=== PATIENT | male | born 1950 | race Caucasian/White ===

== ENCOUNTER → 2017-06-23 | Outpatient (CLI) | payer MEDICARE ==
[~2017-06-23] MED LIST: AMOCLA875; CALCIUM PO; CYAN1000I IM; ESOM20 PO; HYDMOR2 PO; HYDR1TAB94; K-Dur10 MEQ PO; LORA1 PO; Nexium40 MG PO; POTCHL10ER PO; TRAM50 PO; Ultram50 MG PO
== END | disposition home or self-care (01) ==
LOC: LAB SHORT 14:30
DX: G89.4 Chronic pain syndrome (principal); Z79.899 Other long term (current) drug therapy

== ENCOUNTER 2018-12-12 17:53 | Emergency (ER) | payer MEDICARE ==
[~2018-12-12] VITALS: Ht 182.9 cm; Wt 131.5 kg
== END 2018-12-12 19:18 | disposition left against medical advice (07) ==
LOC: ER 17:53
DX: Z53.21 Procedure and treatment not carried out due to patient leaving prior to being seen by health care provider (principal)

== ENCOUNTER 2020-05-09 09:19 | Emergency (ER) | payer MEDICARE ==
[~2020-05-09] VITALS: Ht 182.9 cm; Wt 130.6 kg
[~2020-05-09 09:19] MED LIST changes: +CYCL10 PO
[2020-05-09] MEDS ORDERED: OXYC10ER PO (09:29)
[2020-05-09] MEDS ORDERED: Norco 10-325 T1 EACH PO (12:32)
[2020-05-09] MEDS ORDERED: METPRE4DP PO (12:33)
[2020-05-09] MEDS ORDERED: Robaxin-750750 MG PO (12:49)
== END 2020-05-09 12:55 | disposition home or self-care (01) ==
LOC: ER 09:19
DX: M54.5 Low back pain (principal); G89.29 Other chronic pain; E11.9 Type 2 diabetes mellitus without complications; Z79.899 Other long term (current) drug therapy; Z88.8 Allergy status to other drugs, medicaments and biological substances
CPT/HCPCS: 72100; 96374; 96375; 96376; 99283-25; J1100; J1170; J2405

== ENCOUNTER → 2020-07-10 | Outpatient (CLI) | payer OTHER ==
[~2020-07-10] MED LIST changes: +AMLO5 PO; +DOCU100 PO; +FURO40 PO; +METPRE4DP PO; +Norco 10-325 T1 EACH PO; +Norco 7.5-3251 EACH PO; +OXYC10ER PO; +Robaxin-750750 MG PO; +SENN187 PO
[2020-07-10 20:13] LABS: Alanine Aminotransfer (ALT/SGP 24 U/L (12-78); Albumin, Blood 3.6 g/dL (3.4-5.0); Albumin/Globulin Ratio 1.1 (0.8-1.8); Alk Phos 115 U/L (50-136); Anion Gap 5 mmol/L (6-16); Aspartate Aminotrans (AST/SGOT 13 U/L (12-37); Bilirubin, Total 0.2 mg/dL (0.1-1.0); Blood Urea Nitrogen 18 mg/dL (8-24); CO2, Blood 27 mmol/L (21-32); Calcium, Blood 9.2 mg/dL (8.5-10.1); Chloride, Blood 109 mmol/L (98-108); Creatinine, Blood 0.69 mg/dL (0.60-1.20); Globulin, Blood 3.4 g/dL (2.2-4.0); Glomerular Filtration Rate >60 (60-); Glucose, Blood 113 mg/dL (70-99); Potassium, Blood 4.1 mmol/L (3.5-5.5); Sodium, Blood 141 mmol/L (136-145)
== END | disposition home or self-care (01) ==
LOC: LAB SHORT 17:34 → LAB 17:34
PROVIDERS: Physician Assistant
DX: I10 Essential (primary) hypertension (principal)
CPT/HCPCS: 80053

== ENCOUNTER 2020-11-09 11:42 | Inpatient (IN) | payer MEDICARE, OTHER ==
[~2020-11-09] VITALS: Ht 182.9 cm; Wt 104.3 kg
[~2020-11-09 11:42] MED LIST changes: -AMLO5 PO; -DOCU100 PO; -FURO40 PO; -Norco 7.5-3251 EACH PO; -SENN187 PO
[2020-11-09 12:31] LABS: BASOPHILS ABSOLUTE AUTO 0.05 K/mm3 (0.00-0.23); BASOPHILS PERCENT AUTO 0 % (0-2); EOSINOPHILS ABSOLUTE AUTO 0.19 K/mm3 (0.00-0.68); EOSINOPHILS PERCENT AUTO 2 % (0-6); Hematocrit 44.2 % (37.0-53.0); Hemoglobin 14.8 g/dL (13.5-17.5); IMMATURE GRAN ABSOLUTE AUTO 0.06 K/mm3 (0.00-0.10); IMMATURE GRAN PERCENT AUTO 1 % (0-1); LYMPHOCYTES ABSOLUTE AUTO 2.18 K/mm3 (0.84-5.20); LYMPHOCYTES PERCENT AUTO 17 % (21-46); MONOCYTES ABSOLUTE AUTO 0.65 K/mm3 (0.16-1.47); MONOCYTES PERCENT AUTO 5 % (4-13); Mean Corpuscular HGB 30.6 pg (26.0-34.0); Mean Corpuscular HGB Conc 33.5 g/dL (31.5-36.5); Mean Corpuscular Volume 92 fL (80-100); Mean Platelet Volume 10.3 fL (9.1-12.4); NEUTROPHILS ABSOLUTE AUTO 9.51 K/mm3 (1.96-9.15); NEUTROPHILS PERCENT AUTO 75 % (41-73); Platelet Count 223 K/mm3 (150-400); RDW Coefficient Variation 13.6 % (11.7-14.2); RDW Standard Deviation 46.4 fL (35.1-46.3); Red Blood Cell Count 4.83 M/mm3 (4.30-5.90); White Blood Cell Count 12.64 K/mm3 (4.00-11.30)
[2020-11-09 12:33] LABS: Source, Urine Clean Catch
[2020-11-09 12:36] LABS: Bilirubin, Urine Neg (Neg); Blood, Urine Neg (Neg); Glucose Qualitative, Urine Neg (Neg); Ketones, Urine Neg (Neg); Leukocyte Esterase, Urine Neg (Neg); Nitrite, Urine Neg (Neg); Protein, Urine Neg (Neg); Specific Gravity, Urine 1.015 (1.003-1.022); Urobilinogen, Urine NORM (Normal)
[2020-11-09 12:42] LABS: Appearance, Urine Clear (Clear); Color, Urine Pale Yellow (P-Yellow)
[2020-11-09 12:42] LABS: Alanine Aminotransfer (ALT/SGP 34 U/L (12-78); Albumin, Blood 3.8 g/dL (3.4-5.0); Albumin/Globulin Ratio 1.1 (0.8-1.8); Alk Phos 124 U/L (50-136); Anion Gap 7 mmol/L (6-16); Aspartate Aminotrans (AST/SGOT 21 U/L (12-37); Bilirubin, Total 0.5 mg/dL (0.1-1.0); Blood Urea Nitrogen 14 mg/dL (8-24); Bun/Creatinine Ratio 17.1 (12.0-20.0); CO2, Blood 24 mmol/L (21-32); Calcium, Blood 9.4 mg/dL (8.5-10.1); Chloride, Blood 106 mmol/L (98-108); Creatinine, Blood 0.82 mg/dL (0.60-1.20); Globulin, Blood 3.6 g/dL (2.2-4.0); Glomerular Filtration Rate >60 (60-); Glucose, Blood 163 mg/dL (70-99); Potassium, Blood 3.9 mmol/L (3.5-5.5); Sodium, Blood 137 mmol/L (136-145); Total Protein, Blood 7.4 g/dL (6.4-8.2)
[2020-11-09 17:21] LABS: SARS-Cov-2 (COVID-19) PCR, MMC NEGATIVE (NEGATIVE)
--- NOTE | 2020-11-09 20:36 | NUR ---
RECOVERY PATIENT ARRIVED TO ICU POST-OP AT 1946 VIA BED. REPORT RECEIVED FROM ANESTHESIA AND DR. CLIFTON TO BEDSIDE REVIEWED PROCEDURE WITH PATIENT AND . PATIENT A/O UPON ARRIVAL WITH 2L [address]. WOUND VAC TO MID ABD, DRESSING C/D/I. IV TO RIGHT HAND WITH LR INFUSING AT A TKO RATE. PAYNE CATHETER PATENT AND DRAINING CLEAR, YELLOW URINE. PATIENT STATES PAIN IS 80% BETTER AND IS FEELING REALLY GOOD. VITALS STABLE. BRADY HEATING ENGINEER TO SEE PATIENT AND REVIEW NEEDS. REPORT WAS GIVEN TO WILLIAMS BO AND PATIENT MOVED OUT OF ICU AT 2037 VIA BED ASSISTED BY SCANNING SUPERVISORBO LEWIS.
--- NOTE | 2020-11-09 21:10 | NUR ---
ADMISSION NOTE RECEIVED HAND OFF FROM Te HAYS RN USING SBAR. TRANSPORTED PT FROM ICU1 TO 230 VIA ROOM BED WITH AND PERSONAL BELONGINGS BROUGHT WITH HIM. AAO X4, SMITH, FOLLOWS ALL COMMANDS. ORIENTED TO ROOM, CALL SYSTEM, AND POC, VOICES UNDERSTANDING. RESPIRATIONS EVEN AND UNLABORED ON ROOM AIR. LUNG SOUNDS CLEAR BILATERALLY. ABDOMEN ROUND AND OBESE. HYPOACTIVE BOWEL TONES NOTED IN ALL QUADS. MIDLINE CALVIN IS COMPRESSED WITH DRESSING C/D/I. LUQ GUAZE DRESSING COVERED WITH TEGADERM IS C/D/I. RIGHT AC PIV IS PATENT, INFUSING LR FREE FLOW. PAYNE CATH DRAINING CLEAR YELLOW URINE TO GRAVITY. SCD'S TO BLE IN PLACE. DENIES PAIN, DISCOMFORT, OR FURTHER NEEDS AT THIS TIME. ADMISSION ASSESSMENT IN PROGRESS. WILL CONTINUE TO MONITOR AND ADDRESS CHANGES AND NEEDS THEY OCCUR.
[2020-11-10 04:10] LABS: Hematocrit 40.8 % (37.0-53.0); Hemoglobin 13.7 g/dL (13.5-17.5); Mean Corpuscular HGB 30.8 pg (26.0-34.0); Mean Corpuscular HGB Conc 33.6 g/dL (31.5-36.5); Mean Corpuscular Volume 92 fL (80-100); Mean Platelet Volume 9.7 fL (9.1-12.4); Platelet Count 195 K/mm3 (150-400); RDW Coefficient Variation 13.7 % (11.7-14.2); RDW Standard Deviation 46.3 fL (35.1-46.3); Red Blood Cell Count 4.45 M/mm3 (4.30-5.90); White Blood Cell Count 14.86 K/mm3 (4.00-11.30)
[2020-11-10 04:31] LABS: Anion Gap 4 mmol/L (6-16); Blood Urea Nitrogen 18 mg/dL (8-24); Bun/Creatinine Ratio 21.3 (12.0-20.0); CO2, Blood 27 mmol/L (21-32); Calcium, Blood 8.4 mg/dL (8.5-10.1); Chloride, Blood 106 mmol/L (98-108); Creatinine, Blood 0.85 mg/dL (0.60-1.20); Glomerular Filtration Rate >60 (60-); Glucose, Blood 151 mg/dL (70-99); Magnesium, Blood 1.8 mg/dL (1.6-2.4); Potassium, Blood 4.1 mmol/L (3.5-5.5); Sodium, Blood 137 mmol/L (136-145)
--- NOTE | 2020-11-10 06:52 | NUR ---
SHIFT SUMMARY LYING IN LOW FOWLERS WITH EYES CLOSED, HAS RESTED WELL THIS SHIFT. AAO X4, SMITH, FOLLOWS ALL COMMANDS. GIVE PRN PAIN MEDS PER EMAR. PAYNE REMAINS IN PLACE DRAINING CLEAR YELLOW URINE TO GRAVITY. RIGHT HAND 18G PIV IS PATENT, FLUSHES WITH EASE. MIDLINE CALVIN REMAIN COMPRESSED, AND C/D/I. LUQ GAUZE COVERED BY TEGADERM REMAIN C/D/I. NO SIGNIFICANT CHANGES NOTED THIS SHIFT. DENIES PAIN, DISCOMFORT, OR FURTHER NEEDS AT THIS TIME. SAFETY MEASURES IN PLACE. WILL CONTINUE TO MONITOR AND ADDRESS CHANGES AND NEEDS THEY ARISE. WILL GIVE HAND OFF TO ONCOMING SHIFT USING SBAR DURING BEDSIDE REPORT.
--- NOTE | 2020-11-10 17:15 | NUR ---
SHIFT SUMMARY: VSS, NO ACUTE CHANGES, PT REMAINED A/O X 4, PLEASANT/COOPERATIVE. PT AMBULATED IN HALLWAY X 2 THIS SHIFT, SHOWERED, VISITED WITH SPOUSE DURING VISITING HOURS. PT TOLERATING ADA DIET, BT DISTANT BUT ACTIVE. PT RATES PAIN AT 8/10 PRIOR TO ADMINISTRATION OF ANALGESIA PER MAR, 6/10 ON REASSESSMENT. MIDLINE CALVIN DRESSING C/D/I, COMPRESSES, NO SHADOWING.
--- NOTE | 2020-11-11 03:25 | NUR ---
SHIFT SUMMARY POD#2. AAOX4. DISCOMFORT CONTROLLED WITH 2 NORCO Q4H. NO NAUSEA/EMESIS. ABD INCISION WITH CALVIN C/D/I. PT REPORTING MODERATE AMOUNTS OF FLATUS + BURPING, NO BM POST OP. INDEPENDENT IN ROOM. GOOD PO INTAKE + OUTPUT. ON 2L VIA NC AT NIGHT R/T SLEEP APNEA. NO ACUTE CHANGES THIS SHIFT. PT CURRENTLY RESTING IN BED WITH CALL LIGHT IN REACH.
[2020-11-11 04:59] LABS: BASOPHILS ABSOLUTE AUTO 0.04 K/mm3 (0.00-0.23); BASOPHILS PERCENT AUTO 0 % (0-2); EOSINOPHILS ABSOLUTE AUTO 0.14 K/mm3 (0.00-0.68); EOSINOPHILS PERCENT AUTO 1 % (0-6); Hemoglobin 12.4 g/dL (13.5-17.5); IMMATURE GRAN ABSOLUTE AUTO 0.07 K/mm3 (0.00-0.10); IMMATURE GRAN PERCENT AUTO 1 % (0-1); LYMPHOCYTES ABSOLUTE AUTO 2.86 K/mm3 (0.84-5.20); LYMPHOCYTES PERCENT AUTO 20 % (21-46); MONOCYTES PERCENT AUTO 5 % (4-13); Mean Corpuscular HGB 30.7 pg (26.0-34.0); Mean Corpuscular HGB Conc 32.6 g/dL (31.5-36.5); Mean Corpuscular Volume 94 fL (80-100); Mean Platelet Volume 10.5 fL (9.1-12.4); NEUTROPHILS ABSOLUTE AUTO 10.62 K/mm3 (1.96-9.15); NEUTROPHILS PERCENT AUTO 74 % (41-73); Platelet Count 188 K/mm3 (150-400); RDW Standard Deviation 47.8 fL (35.1-46.3); Red Blood Cell Count 4.04 M/mm3 (4.30-5.90); White Blood Cell Count 14.43 K/mm3 (4.00-11.30)
[2020-11-11 05:23] LABS: Anion Gap 3 mmol/L (6-16); Blood Urea Nitrogen 19 mg/dL (8-24); CO2, Blood 30 mmol/L (21-32); Calcium, Blood 8.6 mg/dL (8.5-10.1); Chloride, Blood 104 mmol/L (98-108); Creatinine, Blood 0.86 mg/dL (0.60-1.20); Glomerular Filtration Rate >60 (60-); Glucose, Blood 102 mg/dL (70-99); Phosphorus, Blood 2.7 mg/dL (2.5-4.9); Potassium, Blood 3.6 mmol/L (3.5-5.5); Sodium, Blood 137 mmol/L (136-145)
--- NOTE | 2020-11-11 13:05 | NUR ---
11/11/20 1305 Kori Toussaint VERIFICATIONS: EDIT CHART.
--- NOTE | 2020-11-11 18:17 | NUR ---
SHIFT SUMMARY S/P EXP LAP W/ RESECT, POD 2. PICCO MIDLINE ABD, C/D/I. PT HAS BEEN INDEPENDENT IN ROOM, AMBULATED IN HALLWAYS MULTIPLE TIMES. A/O, VSS, NO N/V, PAIN REPORTED TO BE TOLERABLE W/ PAIN MEDICATION PER EMAR. REPORTS PASSING GAS T/O SHIFT, NO BM YET.
--- NOTE | 2020-11-12 06:50 | NUR ---
SHIFT SUMMARY: SVTELANA IS A&OX4. VSS, NO ACUTE EVENTS OVERNIGHT. HE REPORTS ADEQUATE PAIN CONTROL WITH TWO TABLETS OF NORCO AND 0.5 MG OF DILAUDID. HE STATES HE IS PASSING FLATUS, BUT DENIES A BM YET. HE STATES HE IS HOPEFUL HE WILL BE ABLE TO GO HOME TODAY. IV TO R HAND PATENT. HE IS TOLERATING PO INTAKE WELL. HE HAS BEEN UP WALKING TO ENCOURAGE HIS BOWELS TO MOVE, USES THE CALL LIGHT APPROPRIATELY. HE IS LYING IN BED WITH HIS CALL LIGHT IN REACH. WILL REPORT TO DAY SHIFT RN.
[2020-11-12] MEDS ORDERED: Norco 7.5-3251 EACH PO (14:20)
[2020-11-12] MEDS ORDERED: AMLO5 PO (14:21)
[2020-11-12] MEDS ORDERED: DOCU100 PO (14:21)
[2020-11-12] MEDS ORDERED: FURO40 PO (14:22)
[2020-11-12] MEDS ORDERED: SENN187 PO (14:23)
--- NOTE | 2020-11-12 14:45 | NUR ---
DISCHARGE PT EATING, DRINKING, VOIDING, & PASSING GAS. VSS, IND IN ROOM, AMBULATING HALLWAYS WELL. PICCO DRSG MIDLINE, C/D/I. NO N/V. DISCHARGE INSTRUCTIONS SENT W/ PT. SCRIPTS FAXED TO PHARMACY. PT ESCORTED OUT VIA W/C.
== END 2020-11-12 15:10 | disposition home or self-care (01) | DRG 330 ==
LOC: ER 11:42 → SURS 18:17 → ICUE 19:55 → SURS 20:33
PROVIDERS: Family Medicine; Physician Assistant; ADMIT Surgery
PROC: 0DB80ZZ Excision of Small Intestine, Open Approach (ICD-10-PCS; principal; 2020-11-09 17:00)
PROC: 0WQF0ZZ Repair Abdominal Wall, Open Approach (ICD-10-PCS; 2020-11-09 17:00)
PROC: 0WJF4ZZ Inspection of Abdominal Wall, Percutaneous Endoscopic Approach (ICD-10-PCS; 2020-11-09 17:00)
DX: K43.1 Incisional hernia with gangrene (principal); I50.32 Chronic diastolic (congestive) heart failure; Z20.822 Contact with and (suspected) exposure to COVID-19; G47.33 Obstructive sleep apnea (adult) (pediatric); F41.9 Anxiety disorder, unspecified; G89.4 Chronic pain syndrome; I11.0 Hypertensive heart disease with heart failure; K21.9 Gastro-esophageal reflux disease without esophagitis; F17.210 Nicotine dependence, cigarettes, uncomplicated; E66.01 Morbid (severe) obesity due to excess calories; E11.9 Type 2 diabetes mellitus without complications; Z53.31 Laparoscopic surgical procedure converted to open procedure; Z87.11 Personal history of peptic ulcer disease; Z98.84 Bariatric surgery status; Z98.890 Other specified postprocedural states; Z88.8 Allergy status to other drugs, medicaments and biological substances; Z79.899 Other long term (current) drug therapy
CPT/HCPCS: 36415; 71045; 74177; 80048; 80053; 80069; 81003; 82947; 83036; 83690; 83735; 83880; 85025; 85027; 88307; 93005; 93010; 94762; 96374-59; 96375; 97116; 97162; 97166; 97530; 97535; 99285-25; A9270; C9113; J0330; J0690; J1100; J1170; J1650; J1885; J2270; J2370; J2405; J2550; J2704; J3010; J7120; Q9967; U0004

== ENCOUNTER → 2020-12-11 | Outpatient (CLI) | payer OTHER ==
[~2020-12-11] MED LIST changes: +AMLO5 PO; +DOCU100 PO; +FURO40 PO; +Norco 7.5-3251 EACH PO; +SENN187 PO
== END | disposition home or self-care (01) ==
LOC: LAB 16:07 → LAB SHORT 16:07
DX: E53.8 Deficiency of other specified B group vitamins (principal)
CPT/HCPCS: 82607

== ENCOUNTER → 2021-03-11 | Outpatient (CLI) | payer OTHER | END | disposition home or self-care (01) | LOC: LAB SHORT 11:30 | DX: E53.8 Deficiency of other specified B group vitamins (principal); L08.9 Local infection of the skin and subcutaneous tissue, unspecified | CPT/HCPCS: 82607; 87070; 87075; 87205 ==

== ENCOUNTER → 2021-04-09 | Outpatient (CLI) | payer OTHER | END | disposition home or self-care (01) | LOC: LAB SHORT 12:14 | DX: E53.8 Deficiency of other specified B group vitamins (principal) | CPT/HCPCS: 82607 ==

== ENCOUNTER 2021-04-17 08:53 | Day surgery (SDC) | payer OTHER ==
[~2021-04-17] VITALS: Ht 180.3 cm; Wt 140.1 kg
--- NOTE | 2021-04-17 11:35 | NUR ---
04/17/21 1135 ELIA NGUYEN PT COMPLAINED OF A 10/10 LOWER BACK AND HIP PAIN UPON ARRIVAL. RN ASSISTED PT TO REPOSITION MULTIPLE TIMES FOR PT COMFORT. RN APPLIED HEAT TO LOWER BACK, ANETHESIA NOTIFIED. TWO DOSES OF DILAIDID 0.5MG GIVEN IV FOR PAIN 10/10 PER ANETHESIA ORDERS.
== END 2021-04-17 15:09 | disposition home or self-care (01) ==
LOC: ORSCSDS 08:53
PROVIDERS: Surgery
PROC: 0JC80ZZ Extirpation of Matter from Abdomen Subcutaneous Tissue and Fascia, Open Approach (ICD-10-PCS; principal; 2021-04-17 10:30)
DX: S31.109A Unspecified open wound of abdominal wall, unspecified quadrant without penetration into peritoneal cavity, initial encounter (principal); G47.33 Obstructive sleep apnea (adult) (pediatric); K21.9 Gastro-esophageal reflux disease without esophagitis; E66.01 Morbid (severe) obesity due to excess calories; Z68.41 Body mass index [BMI] 40.0-44.9, adult; Z79.899 Other long term (current) drug therapy
CPT/HCPCS: 87070; 87075; 87205; J1100; J1170; J2250; J2405; J2704

== ENCOUNTER → 2021-11-11 | Outpatient (CLI) | payer OTHER | END | disposition home or self-care (01) | LOC: LAB 13:30 → LAB SHORT 13:30 | PROVIDERS: Physician Assistant | DX: M54.50 Low back pain, unspecified (principal) | CPT/HCPCS: G0480 ==

== ENCOUNTER → 2021-11-25 | Outpatient (CLI) | payer OTHER ==
[2021-11-25 13:31] LABS: U Amphetamine Screen Not Detected; U Methamphetamine Screen Not Detected
[2021-11-25 13:32] LABS: U Barbituate Screen Not Detected; U Benzodiazapine Screen DETECTED; U Buprenorphine Screen Not Detected; U Cannabinoids Screen Not Detected; U Cocaine Screen Not Detected; U Methadone Screen Not Detected; U Opiates Screen DETECTED; U Oxycodone Screen Not Detected; U Phencyclidine Screen Not Detected; U Propoxyphene Screen Not Detected
== END | disposition home or self-care (01) ==
LOC: LAB SHORT 11:00 → LAB 11:00 → LAB FUT 06-10 15:15 → EDSTATUS 06-10 15:15
PROVIDERS: Physician Assistant
DX: M54.50 Low back pain, unspecified (principal); G89.29 Other chronic pain

== ENCOUNTER 2022-10-26 18:24 | Inpatient (IN) | payer OTHER ==
[~2022-10-26] VITALS: Ht 177.8 cm; Wt 109.0 kg
[2022-10-26 19:05] LABS: Hematocrit 41.4 % (37.0-53.0); Hemoglobin 13.2 g/dL (13.5-17.5); Mean Corpuscular HGB 31.1 pg (26.0-34.0); Mean Corpuscular HGB Conc 31.9 g/dL (31.5-36.5); Mean Corpuscular Volume 97 fL (80-100); Mean Platelet Volume 10.4 fL (9.1-12.4); Platelet Count 207 K/mm3 (150-400); RDW Coefficient Variation 13.1 % (11.7-14.2); RDW Standard Deviation 47.4 fL (35.1-46.3); Red Blood Cell Count 4.25 M/mm3 (4.30-5.90); White Blood Cell Count 14.29 K/mm3 (4.00-11.30)
[2022-10-26 19:31] LABS: Albumin, Blood 2.8 g/dL (3.4-5.0); Albumin/Globulin Ratio 0.7 (0.8-1.8); Bilirubin, Total 0.6 mg/dL (0.1-1.0); Bun/Creatinine Ratio 11.4 (12.0-20.0); Calcium, Blood 8.7 mg/dL (8.5-10.1); Creatinine, Blood 0.79 mg/dL (0.60-1.20); Globulin, Blood 4.3 g/dL (2.2-4.0); Potassium, Blood 3.4 mmol/L (3.5-5.5); Total Protein, Blood 7.1 g/dL (6.4-8.2)
[2022-10-26 19:36] LABS: BAND PERCENT MAN 10 % (0-8); BASOPHILS PERCENT MAN 0 % (0-2); EOSINOPHILS PERCENT MAN 0 % (0-6); LYMPHOCYTES PERCENT MAN 14 % (21-46); MONOCYTES ABSOLUTE MAN 0.57 K/mm3 (0.16-1.47); MONOCYTES PERCENT MAN 4 % (4-13); NEUTROPHILS ABSOLUTE MAN 11.71 K/mm3 (1.96-9.15); SEG NEUTROPHILS PERCENT MAN 72 % (41-73); TOTAL CELLS COUNTED 100
[2022-10-26 19:56] LABS: Influenza A, PCR NEGATIVE (NEGATIVE); Influenza B, PCR NEGATIVE (NEGATIVE); Resp Syncytial Virus, PCR NEGATIVE (NEGATIVE); SARS-Cov-2 (COVID-19) PCR, MMC NEGATIVE (NEGATIVE)
[2022-10-26 23:28] VITALS: BP 128/76
[2022-10-27] VITALS (8 sets, daily range): BP systolic 110–173; BP diastolic 51–133
--- NOTE | 2022-10-27 06:06 | NUR ---
SHIFT SUMMARY A/OX4, 2P ASSIST FOR TRANSFERS. SPO2 >90% ON 6L NC. TELE SR 80S, DENIES CHEST PAIN/PRESSURE. NPO AT THIS TIME. BED IN LOWEST POSITION WITH CALL LIGHT IN REACH. WILL CONTINUE TO MONITOR AND REPORT TO ONCOMING RN.
--- NOTE | 2022-10-27 10:24 | NUR ---
PT DIAPHORETIC, WET PRODUCTIVE COUGH, LAYING FLAT IN BED. HOB ELEVATED AND PT EDUCATED TO HELP BREATHING. . PT STATES HUNGRY AND UPSET STATING THAT HE'S "BEING TORTURED" BY NOT BEING ALLOWED TO EAT. RESIDENT DOCTOR STOPPED IN AND AUTHORIZED BEDSIDE SWALLOW TEST. PT PASSED; NO COUGHING NOTED AFTER DRINKING WATER. NPO ORDER REMOVED AND TRAY ORDERED. PT AGREEABLE TO USING CPAP HE HAS A HISTORY OF APNEA; RT CONSULTED.
--- NOTE | 2022-10-27 13:21 | NUR ---
Assisted to side of bed to eat lunch. Tolerating activity well with 3 l/min of O2 delivery.
[2022-10-27] MEDS ORDERED: Norco 10-325 T1 EACH PO (13:33)
[2022-10-27 15:11] LABS: Magnesium, Blood 2.3 mg/dL (1.6-2.4); Thyroid Stimulating Hormone 0.54 uIU/mL (0.360-4.800)
--- NOTE | 2022-10-27 17:08 | NUR ---
PLACED CONDOM CATHETER. PT AGREEABLE DUE TO EXHAUSTION AND DIFFICULTY USING THE URINAL DUE TO OBESITY, AND THE FACT THAT IV LASIX 1X DOSE IS GIVEN NOW.
--- NOTE | 2022-10-27 17:12 | NUR ---
SHIFT SUMMARY PT DIAPHORETIC AND DROWSY. HE WOULD FALL ASLEEP DURING CONVERSATION BUT EASILY AROUSABLE. WHILE AWAKE HIS SPO2 MAINTAINT ABOVE 90% ON 3L NC. WHEN ASLEEP HE WOULD DROP LOW 68% AND SOMETIMES SPONTANEOUSLY RETURN TO 90% ON 8L BLEED IN CPAP. RT WAS CONSULTED NUMEROUS TIMES THROUGHT THE SHIFT. PRESSURES WERE ADJUSTED NEEDED. CONDOM CATHETER PLACE AFTER IV LASIX GIVEN. HEART RHYTHM STAYED SINUS WITH SOME PVCS. APPETITE HAS BEEN GOOD. NAUSEA ONLY MENTIONED BY PT AFTER AZYITHROMYCIN AND NORCO WERE ADMINISTERED. ZOFRAN GIVEN WITH GOOD RELIEF. PT RESTED IN BED ALL DAY EXCEPT FOR BRIEFLY SITTING AT SIDE OF BED FOR LUNCH AND TO USE THE URINAL. TOLERANCE WAS FAIR.
[2022-10-27] MEDS ORDERED: AMLO5 PO (18:34)
--- NOTE | 2022-10-28 01:50 | NUR ---
O2 DEMANDS INCREASING PT KEEPS DESATURATING TO 60'S AND 70'S WHILE AWAKE AND WHEN SLEEPING. HE HAS BEEN ON HIS CPACP MOST OF THE NGIHT AND RT HAS INCREASED THE PRESSURE TWICE. CHRIS STATED IF THE PT DESATURATES AGAIN WE MAY NEED TO CHANGE HIM TO A V60. FRUIT COORDINATOR AWARE, AND PT EDUCATED TO KEEP TAKING DEEP BREATHS. SEE NOTES FOR MORE UPDATES.
[2022-10-28 03:13] VITALS: BP 118/63
[2022-10-28 04:17] LABS: BASOPHILS ABSOLUTE AUTO 0.04 K/mm3 (0.00-0.23); BASOPHILS PERCENT AUTO 0 % (0-2); EOSINOPHILS ABSOLUTE AUTO 0.03 K/mm3 (0.00-0.68); EOSINOPHILS PERCENT AUTO 0 % (0-6); Hematocrit 39.5 % (37.0-53.0); Hemoglobin 12.3 g/dL (13.5-17.5); IMMATURE GRAN ABSOLUTE AUTO 0.16 K/mm3 (0.00-0.10); IMMATURE GRAN PERCENT AUTO 1 % (0-1); LYMPHOCYTES PERCENT AUTO 16 % (21-46); MONOCYTES ABSOLUTE AUTO 0.69 K/mm3 (0.16-1.47); MONOCYTES PERCENT AUTO 6 % (4-13); Mean Corpuscular HGB 31.1 pg (26.0-34.0); Mean Corpuscular HGB Conc 31.1 g/dL (31.5-36.5); Mean Corpuscular Volume 100 fL (80-100); Mean Platelet Volume 10.2 fL (9.1-12.4); NEUTROPHILS ABSOLUTE AUTO 8.62 K/mm3 (1.96-9.15); NEUTROPHILS PERCENT AUTO 76 % (41-73); Platelet Count 194 K/mm3 (150-400); RDW Coefficient Variation 13.1 % (11.7-14.2); RDW Standard Deviation 48.7 fL (35.1-46.3); Red Blood Cell Count 3.95 M/mm3 (4.30-5.90); White Blood Cell Count 11.34 K/mm3 (4.00-11.30)
[2022-10-28 04:35] LABS: Albumin, Blood 2.5 g/dL (3.4-5.0); Albumin/Globulin Ratio 0.6 (0.8-1.8); Bilirubin, Total 0.6 mg/dL (0.1-1.0); Bun/Creatinine Ratio 18.6 (12.0-20.0); Creatinine, Blood 0.7 mg/dL (0.60-1.20); Globulin, Blood 3.9 g/dL (2.2-4.0); Magnesium, Blood 2.3 mg/dL (1.6-2.4); Phosphorus, Blood 3.1 mg/dL (2.5-4.9); Potassium, Blood 4.1 mmol/L (3.5-5.5); Total Protein, Blood 6.4 g/dL (6.4-8.2)
--- NOTE | 2022-10-28 06:12 | NUR ---
SHIFT SUMMARY PT IS A&OX4, BUT HAS BEEN VERY DROWSY THIS SHIFT. HE HAS FALLEN ASLEEP MANY TIMES DURING CONVERSATION BUT CAN STAY AWAKE ENOUGH TO TAKE MEDICATIONS W/O ISSUE. THE PT HAS NEEDED AN INCREASE IN OXYGEN THIS SHIFT AND HE IS ON THE CPACP W/ 10L. RT STATED THAT THE V60 WOULD BE THE NEXT STEP. PT STILL DENIES SOB AT REST, BUT GET SBO W/ ACTIVITY.HE HAS BEEN NSR 60'S-80S THIS SHIFT AND DENIES ANY ANGINA OR CHEST PRESSURE. HE HAS NEEDED Q2 TURNS, HELP USING THE URINAL, AND FREQUENT REMINDERS OF DEEP BREATHING. PT WAS MEDICATED W/ 650MG OF TYLENOL BECAUSE OF A FEVER OF 100.3. A FAN WAS PLACED TOWARDS THE PT, AND ICE PACKS WERE APPLIED ON HIM TO HELP LOWER IT. PT HAS CHRONIC BACK PAIN AND WAS MEDICATED ONCE W/ NORCO AND HIS FLEXRIL. PT USES HIS CALL LIGHT TO MAKE HIS NEEDS KNOWN. THREE SIDE RAILS UP, CALL LIGHT IN REACH, BED IN LOW. SEE NOTES FOR ANY UPDATES. TEMPATURE HAS STARTED TO TREND DOWN.
[2022-10-28 07:40] VITALS: BP 116/52
[2022-10-28 11:27] LABS: Base Excess Venous 13.9 mmol/L; Bicarbonate Venous 33.4 mmol/L (24.0-30.0); PCO2 Venous 73.5 mmHg (38-42); pH Blood Venous 7.34 (7.34-7.37)
--- NOTE | 2022-10-28 11:40 | NUR ---
[facility] RESULTS CALLED TO ME ON [facility] FROM RT DONALDO.
[2022-10-28 12:42] VITALS: BP 107/53
[2022-10-28 16:28] VITALS: BP 126/54
--- NOTE | 2022-10-28 16:29 | NUR ---
Assisted from bed to chair to relieve his back pain. He was also given flexeril and will follow up an hour later with [facility] if needed. Much fewer episodes of hypoxia today. He is still very exhausted, and sleeps in between care. He falls asleep during conversations at times. Has refused his CPAP a few times today, although pt education was done to emphasize the benefits and importance of it.
[2022-10-28 19:07] VITALS: BP 108/56
[2022-10-28 23:27] VITALS: BP 103/46
[2022-10-29] VITALS (9 sets, daily range): BP systolic 95–150; BP diastolic 58–101
[2022-10-29 04:19] LABS: BASOPHILS ABSOLUTE AUTO 0.03 K/mm3 (0.00-0.23); BASOPHILS PERCENT AUTO 0 % (0-2); EOSINOPHILS ABSOLUTE AUTO 0.15 K/mm3 (0.00-0.68); EOSINOPHILS PERCENT AUTO 2 % (0-6); Hemoglobin 11.7 g/dL (13.5-17.5); IMMATURE GRAN ABSOLUTE AUTO 0.11 K/mm3 (0.00-0.10); IMMATURE GRAN PERCENT AUTO 1 % (0-1); LYMPHOCYTES ABSOLUTE AUTO 1.77 K/mm3 (0.84-5.20); LYMPHOCYTES PERCENT AUTO 21 % (21-46); MONOCYTES ABSOLUTE AUTO 0.84 K/mm3 (0.16-1.47); MONOCYTES PERCENT AUTO 10 % (4-13); Mean Corpuscular HGB 30.2 pg (26.0-34.0); Mean Corpuscular HGB Conc 30.8 g/dL (31.5-36.5); Mean Corpuscular Volume 98 fL (80-100); Mean Platelet Volume 9.7 fL (9.1-12.4); NEUTROPHILS ABSOLUTE AUTO 5.44 K/mm3 (1.96-9.15); NEUTROPHILS PERCENT AUTO 65 % (41-73); Platelet Count 168 K/mm3 (150-400); RDW Coefficient Variation 12.7 % (11.7-14.2); RDW Standard Deviation 45.6 fL (35.1-46.3); Red Blood Cell Count 3.88 M/mm3 (4.30-5.90); White Blood Cell Count 8.34 K/mm3 (4.00-11.30)
[2022-10-29 04:39] LABS: Albumin, Blood 2.3 g/dL (3.4-5.0); Albumin/Globulin Ratio 0.6 (0.8-1.8); Bilirubin, Total 0.5 mg/dL (0.1-1.0); Bun/Creatinine Ratio 18.3 (12.0-20.0); Calcium, Blood 9.2 mg/dL (8.5-10.1); Creatinine, Blood 0.65 mg/dL (0.60-1.20); Globulin, Blood 3.9 g/dL (2.2-4.0); Magnesium, Blood 2.1 mg/dL (1.6-2.4); Phosphorus, Blood 3.4 mg/dL (2.5-4.9); Potassium, Blood 3.9 mmol/L (3.5-5.5); Total Protein, Blood 6.2 g/dL (6.4-8.2)
--- NOTE | 2022-10-29 05:13 | NUR ---
SHIFT SUMMARY PT IS A&OX4, AND HAS BEEN CALLING APPROPRIATELY THIS SHIFT. HE HAS BEEN HELPING MORE WITH HIS CARE AND HAS BEEN ABLE TO HELP TURN HIMSELF IN BED. HE IS STILL HAVING BACK AND HIP PAIN AND HIS MEDICATIONS WERE CHANGED TO THE DOSE OF HIS HOME MEDICATIONS TO HELP MANAGE PAIN, PER MD. PT HAS NOT DESATURATED THIS SHIFT, BUT HAS BEEN ON THE CPAP ALMOST THE ENTIRE NIGHT. PT GETS ANXIOUS W/ BREATHING TREATMENTS AND NEEDS REASSURANCE. HE DOES NOT LIKE THE MIST AROUND HIS EYES. ON TELE PT HAS BEEN SB/SR 50 -80 S. BP STABLE. AN ORDER OF EYE GTTS WAS OBTAINED Q1P FOR HIS DRY CRUSTY LEFT EYE. PT IS ON STRICT I/O. BED IN LOW, CALL LIGHT IN REACH. SEE NOTES FOR MORE UPDATES.
--- NOTE | 2022-10-29 19:42 | NUR ---
SHIFT SUMMARY ALERT, ORIENTED, COOPERATIVE. ANXIOUS AT TIMES. CPAP AT 15/10L IN AM FOR SLEEP, 5L VIA NC WHEN AWAKE. CONGESTED NON-PRODUCTIVE COUGH, EXP WHEEZE. HR NSR ON TELE. TOLERATING CARDIAC DIET AND 1500 ML FLUID RESTRICTION. DIURESING TODAY WITH LASIX, LS CONGESTION IMPROVED. CONDOM CATH PLACED FOR URINE OUTPUT. SBA UP TO CHAIR. CHRONIC BACK PAIN MANAGED WITH NORCO 10S. ROUTINE IV ABX FOR PNA. REPORT GIVEN TO MOTORCYCLE DELIVERY DRIVER RN.
[2022-10-30 03:57] VITALS: BP 138/69
--- NOTE | 2022-10-30 05:57 | NUR ---
SHIFT SUMMARY PATIENT ALERT AND ORIENTED, CAN BE FORGETFUL AT TIMES. VSS, PATIENT ALTERNATING BETWEEN 5L NC AND CPAP, SPO2 >91%. CONDOM CATH REMOVED DURING THE SHIFT D/T PATIENT UNINTENTIONALLY PULLING OFF WHEN SHIFTING IN BED. MEDICATED PER EMAR FOR ANXIETY. NO OTHER SIGNIFICANT CHANGES, WILL REPORT TO DAY SHIFT RN.
[2022-10-30 07:31] VITALS: BP 145/73
--- NOTE | 2022-10-30 10:49 | NUR ---
CARE NOTE PT SPO2 NOTED TO DIP TO 85% VIA 4L NC, PT NOTED TO BE SLEEPING. THIS NURSE ASKED PT IF CPAP COULD BE PLACED TO MAINTAIN O2 LEVELS WHILE SLEEPING AND PT REFUSED. PT EDUCATED ABOUT IMPORTANCE OF CPAP USE WHILE SLEEPING. THIS TOOK PLACE APPROX. 1050. THIS NURSE WILL CONTINUE TO ENCOURAGE CPAP USE. CONT. SPO2 MONITORING IN PLACE.
--- NOTE | 2022-10-30 11:07 | NUR ---
CARE NOTE AT APPROX 1030 PT HAD EPISODE OF INCONTINENCE DUE TO NOT BEING ABLE TO FIND BEDSIDE URINAL WELL CALL LIGHT. CALL LIGHT WAS W/IN REACH. PT ENCOURAGED TO ALLOW CONDOM CATHETER PLACEMENT DUE TO NEED OF STRICT I&O'S BUT DECLINED USE. WILL CONTINUE TO ASSIST W/ BEDSIDE URINAL USE. BOTH CALL LIGHT WELL 2 BEDSIDE URINALS ARE W/IN REACH.
[2022-10-30 11:37] VITALS: BP 133/93
[2022-10-30 16:31] VITALS: BP 137/79
--- NOTE | 2022-10-30 17:16 | NUR ---
SHIFT SUMMARY PT IS ALERT AND ORIENTED TO SELF, PLACE, AND SITUATION BUT DID NOT KNOW THE DAY THIS AM. HE HAS HALLUCINATED ON AND OFF DURING SHIFT AND STATED "THERE'S A FIRE, I NEED TO REMEMBER TO TURN OFF THE LIGHTS" AND "THERE'S A HIGH SPEED ETHAN." SPO2 MAINTAINED VIA 6L NC. PT HAS BEEN SOMNOLENT FOR MAJORITY OF SHIFT AND HAS BEEN ENCOURAGED TO WEAR CPAP WHILE SLEEPING BUT HE DOES NOT ALWAYS COMPLY DESPITE EDUCATION. BP AND HR STABLE. HACKING COUGH NOTED. PT HAS DENIED FEELINGS OF CHEST PAIN/PRESSURE. HE HAS VOIDED VIA BEDSIDE URINAL. WAS AT BEDSIDE THIS AFTERNOON. EARLIER THIS AM. PT STATED THAT HE WANTED TO LEAVE AMA, DR. PLASENCIA SPOKE W/ PT WHILE THIS NURSE WAS IN THE ROOM AND EDUCATED PT REGARDING PLAN OF CARE WELL ENCOURAGED PT TO STAY TO RECIEVE TREATMENT. PT WAS UP TO CHAIR THIS AM BUT HAS WANTED TO STAY IN BED FOR MAJORITY OF SHIFT DESPITE ENCOURAGEMENT TO SIT UP. CALL LIGHT IS W/IN REACH, WILL CONINUE TO MONITOR UNTIL REPORT GIVEN.
[2022-10-30 19:43] VITALS: BP 130/71
[2022-10-31 00:42] VITALS: BP 137/75
--- NOTE | 2022-10-31 03:02 | NUR ---
UPDATE PATIENT REPORTING INDEGESTION AND NAUSEA AROUND 0000. CALL PLACED TO HOSPITALIST. ORDERS RECIEVED FOR PRN TUMS AND IF PATIENT DID NOT GET RELIEF, A GI COCKTAIL. TUMS AND GI COCKTAIL GIVEN TO PATIENT. PATIENT RESTLESS IN BED SINCE SHIFT CHANGE. MEDICATED PER EMAR TO PROVIDE COMFORT FOR PATIENT. PATIENT ALSO GETTING REPOSITIONED Q1 PATIENT USING CALL LIGHT OFTEN.
[2022-10-31 04:39] VITALS: BP 130/77
--- NOTE | 2022-10-31 04:45 | NUR ---
UPDATE THIS RN INTO ROOM AFTER HEARING PATIENT TAKE CPAP OFF AND BEGIN A HACKING PRODUCTIVE COUGHING FIT. EMESIS BAG GIVEN TO PATIENT FOR ANY SPUTUM. YELLOW/BROWN SPUTUM IN EMESIS BAG. LUNGS SOUND COARSE T/O. NO CHANGES TO SPO2. CALL PLACED TO HOSPITALIST WITH UPDATE. NEW ORDERS FOR MUCINEX BID.
[2022-10-31 05:44] LABS: Albumin, Blood 2.6 g/dL (3.4-5.0); Anion Gap 5 mmol/L (6-16); Blood Urea Nitrogen 22 mg/dL (8-24); Bun/Creatinine Ratio 34.1 (12.0-20.0); CO2, Blood 40 mmol/L (21-32); Calcium, Blood 9.3 mg/dL (8.5-10.1); Chloride, Blood 96 mmol/L (98-108); Creatinine, Blood 0.65 mg/dL (0.60-1.20); Glomerular Filtration Rate 99 (60-); Glucose, Blood 211 mg/dL (70-99); Phosphorus, Blood 4.2 mg/dL (2.5-4.9); Potassium, Blood 3.8 mmol/L (3.5-5.5); Sodium, Blood 141 mmol/L (136-145)
--- NOTE | 2022-10-31 05:56 | NUR ---
SHIFT SUMMARY PATIENT ALERT AND ORIENTED, CAN BE FORGETFUL AT TIMES, ESPECIALLY WHEN PATIENT IS WEARING NASAL CANNULA FOR TOO LONG. VITALS STABLE, ALTERNATING BETWEEN NC AND CPAP, O2 >90%. SEE PREVIOUS NOTE REGARDING PRODUCTIVE COUGH AND INDEGESTION. TURNED FREQUENTLY FOR COMFORT. USING URINAL WITH ASSISTANCE. NO OTHER CHANGES, WILL REPORT TO DAY SHIFT RN.
[2022-10-31 08:06] VITALS: BP 100/63
[2022-10-31 12:32] LABS: Base Excess Venous 18.2 mmol/L; Bicarbonate Venous 38.3 mmol/L (24.0-30.0); PCO2 Venous 68.6 mmHg (38-42); pH Blood Venous 7.41 (7.34-7.37)
[2022-10-31 12:44] VITALS: BP 129/69
[2022-10-31 16:15] VITALS: BP 131/56
--- NOTE | 2022-10-31 17:45 | NUR ---
SHIFT SUMMARY; ASSUMED CARE AT 0700. SLEEPING AT START OF SHIFT WITH CPAP IN PLACE. WAKES FOR BREAKFAST. A/A/OX3 WITH INTERMITANT CONFUSION DURING SHIFT. 5L VIA NC WHILE AWAKE, CPAP FOR AFTERNOON NAP. USES URINAL AT BEDSIDE, REPOSITIONS SELF, SHOWER TAKEN DURING SHIFT WITH LINEN CHANGE. VSS, COOPERATIVE WITH CARE. 1800ML FLUID RESTRICTION DURING SHIFT. WILL CONTINUE TO MONITOR AND TREAT UNTIL CHANGE OF SHIFT.
[2022-11-01 05:22] LABS: Hemoglobin 13.9 g/dL (13.5-17.5); Mean Corpuscular HGB 30.1 pg (26.0-34.0); Mean Corpuscular HGB Conc 31.6 g/dL (31.5-36.5); Mean Corpuscular Volume 95 fL (80-100); Mean Platelet Volume 9.6 fL (9.1-12.4); Platelet Count 322 K/mm3 (150-400); RDW Coefficient Variation 12.2 % (11.7-14.2); RDW Standard Deviation 43.1 fL (35.1-46.3); Red Blood Cell Count 4.62 M/mm3 (4.30-5.90); White Blood Cell Count 15.81 K/mm3 (4.00-11.30)
[2022-11-01 05:39] LABS: Albumin, Blood 2.7 g/dL (3.4-5.0); Albumin/Globulin Ratio 0.6 (0.8-1.8); Bilirubin, Total 0.5 mg/dL (0.1-1.0); Bun/Creatinine Ratio 39.9 (12.0-20.0); Calcium, Blood 9.3 mg/dL (8.5-10.1); Creatinine, Blood 0.65 mg/dL (0.60-1.20); Globulin, Blood 4.3 g/dL (2.2-4.0); Potassium, Blood 3.8 mmol/L (3.5-5.5)
[2022-11-01 07:25] VITALS: BP 139/81
[2022-11-01 15:53] VITALS: BP 125/67
[2022-11-01 17:20] VITALS: BP 141/75
--- NOTE | 2022-11-01 17:34 | NUR ---
SHIFT SUMMARY PT UP FROM PCU. PT ALERT AND ORIENTED, CALLS APPROPRIATELY. PT ON 2L NC DURING DAY, CPAP QHS. NO SKIN BREAKDOWN NOTED. AT BEDSIDE. IV STEROIDS AND LASIX. NO C/O PAIN. WILL CONTINUE TO MONITOR. CALL LIGHT WITHIN REACH.
--- NOTE | 2022-11-01 17:40 | NUR ---
SHIFT SUMMARY; ASSUMED CARE AT 0700. A/A/OX3 DURING SHIFT. NO OBSERVED INTERMITANT CONFUSION PREVIOUS SHIFT. REPOSITIONS SELF, SBA TO CHAIR DURING SHIFT. INSULIN COVERAGE STARTED TODAY PER EMAR. 02 TITRATED DOWN TO 2L VIA NC. CPAP AT NIGHT. AWAKE FOR ENTIRE SHIFT TODAY. 1500ML FLUID RESTRICTION, PT DISCUSSED THIS WITH RESIDENT MD AND VERBALIZES UNDERSTANDING. VOIDING IN URINAL AT BEDSIDE WITHOUT DIFFICULTY. BLE EDEMA IMPROVED FROM PREVIOUS. STATUS CHANGED TO MEDICAL TODAY, REPORT TO MED FLOOR RN. TRANSFERRED TO MED FLOOR VIA WHEELCHAIR WITHOUT DIFFICULTY.
[2022-11-01 20:49] VITALS: BP 168/87
[2022-11-02 03:50] VITALS: BP 163/90
--- NOTE | 2022-11-02 06:41 | NUR ---
SUMMARY: PT A/OX4, CALLS APPROPRIATELY TO SPECIFY NEEDS AND IS UP W/SBA IN ROOM. HE USED URINAL AD CONNIE AND REMAINS ON 1500 ML F.R. HE TOLERATED CPAP AT HS AND 2L NC WA W/SPO2 REMAINING WNL. ENTERPRISE SOFTWARE DEVELOPER TO MAKE ARRANGEMENTS FOR HOME CPAP UPON D/C. PT C/O CHRONIC BACK AND KNEE PAIN W/DIFFICULTY SLEEPING. PO ATIVAN, FLEXERIL AND OXYCODONE RECIEVED PRN PER PT REQUEST FOR GOOD EFFECTS AND "GREAT REST". NO ACUTE CHANGES, VSS/AFEBRILE. WCTM AND REPORT TO DAY RN.
[2022-11-02 07:50] LABS: Hematocrit 41.6 % (37.0-53.0); Hemoglobin 13.9 g/dL (13.5-17.5); Mean Corpuscular HGB Conc 33.4 g/dL (31.5-36.5); Mean Corpuscular Volume 93 fL (80-100); Mean Platelet Volume 9.5 fL (9.1-12.4); Platelet Count 323 K/mm3 (150-400); RDW Coefficient Variation 12.1 % (11.7-14.2); RDW Standard Deviation 41.3 fL (35.1-46.3); Red Blood Cell Count 4.48 M/mm3 (4.30-5.90); White Blood Cell Count 15.27 K/mm3 (4.00-11.30)
[2022-11-02 08:10] LABS: BASOPHILS PERCENT MAN 0 % (0-2); EOSINOPHILS PERCENT MAN 0 % (0-6); LYMPHOCYTES ABSOLUTE MAN 1.52 K/mm3 (0.84-5.20); LYMPHOCYTES PERCENT MAN 10 % (21-46); MONOCYTES ABSOLUTE MAN 0.76 K/mm3 (0.16-1.47); MONOCYTES PERCENT MAN 5 % (4-13); MYELOCYTE PERCENT MAN 2 % (0-0); NEUTROPHILS ABSOLUTE MAN 12.67 K/mm3 (1.96-9.15); SEG NEUTROPHILS PERCENT MAN 83 % (41-73); TOTAL CELLS COUNTED 100
[2022-11-02 08:17] LABS: Albumin, Blood 2.6 g/dL (3.4-5.0); Albumin/Globulin Ratio 0.7 (0.8-1.8); Bilirubin, Total 0.3 mg/dL (0.1-1.0); Bun/Creatinine Ratio 41.9 (12.0-20.0); Calcium, Blood 9.1 mg/dL (8.5-10.1); Creatinine, Blood 0.65 mg/dL (0.60-1.20); Globulin, Blood 3.8 g/dL (2.2-4.0); Potassium, Blood 3.9 mmol/L (3.5-5.5); Total Protein, Blood 6.4 g/dL (6.4-8.2)
[2022-11-02 08:20] VITALS: BP 141/69
[2022-11-02] MEDS ORDERED: ALBU2.5V5 INH (13:07)
[2022-11-02] MEDS ORDERED: PAIN RELIEF1 EACH TOP (13:07)
[2022-11-02] MEDS ORDERED: AIRDUO RESPICL1 EAC4 INH (13:08)
[2022-11-02] MEDS ORDERED: PRED20 PO (13:08)
[2022-11-02] MEDS ORDERED: GUAI600T33 PO (13:30)
[2022-11-02] MEDS ORDERED: Cyclobenzaprine5 MG PO (13:30)
--- NOTE | 2022-11-02 14:15 | NUR ---
DISCHARGE INSTRUCTIONS COMPLETED AND DISCUSSED WITH PT EXPRESSING UNDERSTANDING. TO [facility] VIA W/C WITH . NO NEED FOR O2.
[2022-11-02 15:07] LABS: HBSAG SCREEN Negative (Negative); HCV AB Non Reactive (Non Reactive); HEP A AB, IGM Negative (Negative); HEP B CORE AB, IGM Negative (Negative)
== END 2022-11-02 13:55 | disposition home or self-care (01) | DRG 871 ==
LOC: ER 18:24 → MEDS 22:50 → PCU 22:50 → MEDS 11-01 17:42
PROVIDERS: Family Medicine; Internal Medicine; Student in an Organized Health Care Education/Training Program; ADMIT Internal Medicine
PROC: 3E03329 Introduction of Other Anti-infective into Peripheral Vein, Percutaneous Approach (ICD-10-PCS; principal; 2022-10-26)
PROC: 5A09457 Assistance with Respiratory Ventilation, 24-96 Consecutive Hours, Continuous Positive Airway Pressure (ICD-10-PCS; 2022-10-26)
DX: A41.9 Sepsis, unspecified organism (principal); I50.33 Acute on chronic diastolic (congestive) heart failure; J18.9 Pneumonia, unspecified organism; J96.21 Acute and chronic respiratory failure with hypoxia; J44.0 Chronic obstructive pulmonary disease with (acute) lower respiratory infection; E66.2 Morbid (severe) obesity with alveolar hypoventilation; Z20.822 Contact with and (suspected) exposure to COVID-19; K21.9 Gastro-esophageal reflux disease without esophagitis; I11.0 Hypertensive heart disease with heart failure; R65.20 Severe sepsis without septic shock; E11.65 Type 2 diabetes mellitus with hyperglycemia; I35.0 Nonrheumatic aortic (valve) stenosis; E87.6 Hypokalemia; G89.29 Other chronic pain; M54.9 Dorsalgia, unspecified; Z68.34 Body mass index [BMI] 34.0-34.9, adult; Z91.190 Patient's noncompliance with other medical treatment and regimen due to financial hardship; Z88.8 Allergy status to other drugs, medicaments and biological substances; Z79.891 Long term (current) use of opiate analgesic; Z98.890 Other specified postprocedural states; Z98.84 Bariatric surgery status; Z87.891 Personal history of nicotine dependence; Z79.899 Other long term (current) drug therapy
CPT/HCPCS: 0241U; 36415; 71045; 71046; 76705; 80053; 80069; 80074; 82803; 82947; 83036; 83735; 83880; 84100; 84443; 84484; 85025; 85027; 87040; 87070; 87205; 93005; 93010; 93306; 94640; 94660; 94664; 94760; 94761; 94762; 96365; 99285-25; A9270; J0456; J0696; J1650; J1940; J1956; J2405; J2930; J3480; J7050

== ENCOUNTER → 2023-03-07 | Outpatient (CLI) | payer OTHER ==
[~2023-03-07] MED LIST changes: +AIRDUO RESPICL1 EAC4 INH; +ALBU2.5V5 INH; +Cyclobenzaprine5 MG PO; +GUAI600T33 PO; +PAIN RELIEF1 EACH TOP; +PRED20 PO
[2023-03-07 18:19] LABS: U Amphetamine Screen Not Detected; U Barbituate Screen Not Detected; U Benzodiazapine Screen Not Detected; U Buprenorphine Screen Not Detected; U Cannabinoids Screen Not Detected; U Cocaine Screen Not Detected; U Methadone Screen Not Detected; U Methamphetamine Screen Not Detected; U Opiates Screen DETECTED; U Oxycodone Screen Not Detected; U Phencyclidine Screen Not Detected; U Propoxyphene Screen Not Detected
== END | disposition home or self-care (01) ==
LOC: LAB 11:25 → LAB SHORT 11:25
PROVIDERS: Nurse Practitioner Family
DX: Z51.81 Encounter for therapeutic drug level monitoring (principal); Z79.899 Other long term (current) drug therapy

== ENCOUNTER → 2023-07-07 | Outpatient (CLI) | payer OTHER ==
[2023-07-07 17:33] LABS: BASOPHILS ABSOLUTE AUTO 0.05 K/mm3 (0.00-0.23); BASOPHILS PERCENT AUTO 1 % (0-2); EOSINOPHILS ABSOLUTE AUTO 0.26 K/mm3 (0.00-0.68); EOSINOPHILS PERCENT AUTO 3 % (0-6); Hematocrit 43.1 % (37.0-53.0); Hemoglobin 13.5 g/dL (13.5-17.5); IMMATURE GRAN ABSOLUTE AUTO 0.02 K/mm3 (0.00-0.10); IMMATURE GRAN PERCENT AUTO 0 % (0-1); LYMPHOCYTES ABSOLUTE AUTO 2.62 K/mm3 (0.84-5.20); LYMPHOCYTES PERCENT AUTO 30 % (21-46); MONOCYTES ABSOLUTE AUTO 0.74 K/mm3 (0.16-1.47); MONOCYTES PERCENT AUTO 8 % (4-13); Mean Corpuscular HGB 29.6 pg (26.0-34.0); Mean Corpuscular HGB Conc 31.3 g/dL (31.5-36.5); Mean Corpuscular Volume 95 fL (80-100); Mean Platelet Volume 10.1 fL (9.1-12.4); NEUTROPHILS ABSOLUTE AUTO 5.16 K/mm3 (1.96-9.15); NEUTROPHILS PERCENT AUTO 58 % (41-73); Platelet Count 227 K/mm3 (150-400); RDW Coefficient Variation 13.5 % (11.7-14.2); RDW Standard Deviation 47.1 fL (35.1-46.3); Red Blood Cell Count 4.56 M/mm3 (4.30-5.90); White Blood Cell Count 8.85 K/mm3 (4.00-11.30)
[2023-07-09 09:11] LABS: A/G RATIO 1.4 (1.2-2.2); BILIRUBIN, TOTAL 0.3 mg/dL (0.0-1.2); CALCIUM, SERUM 9.5 mg/dL (8.6-10.2); CREATININE, SERUM 1.15 mg/dL (0.76-1.27); GLOBULIN, TOTAL 2.8 g/dL (1.5-4.5); PROTEIN, TOTAL, SERUM 6.7 g/dL (6.0-8.5)
== END ==
LOC: LAB SHORT 16:21 → LAB 16:21
PROVIDERS: Nurse Practitioner Family
DX: I50.32 Chronic diastolic (congestive) heart failure (principal)
CPT/HCPCS: 80053; 83880; 85025

== ENCOUNTER → 2024-01-03 | Outpatient (CLI) | payer OTHER ==
[2024-01-03 19:23] LABS: Bun/Creatinine Ratio 24.8 (12.0-20.0); Calcium, Blood 9.1 mg/dL (8.5-10.1); Creatinine, Blood 0.85 mg/dL (0.60-1.20); Potassium, Blood 4.5 mmol/L (3.5-5.5)
== END ==
LOC: LAB SHORT 16:44 → LAB 16:44
PROVIDERS: Nurse Practitioner Family
DX: I11.0 Hypertensive heart disease with heart failure (principal); I50.32 Chronic diastolic (congestive) heart failure; E87.6 Hypokalemia; R60.0 Localized edema
CPT/HCPCS: 80048

== ENCOUNTER 2024-03-18 18:39 | Emergency (ER) | payer OTHER ==
[~2024-03-18] VITALS: Ht 182.9 cm; Wt 113.4 kg
[~2024-03-18 18:39] MED LIST changes: +EPINEPhrine HCl 0.1 MG/ML 10ML SYR IV ONE; +Sodium Bicarb 8.4% 50 mEq Syringe IV ONE
[2024-03-18 18:55] LABS: Calcium, Ionized (POC) 0.99 mmol/L (1.10-1.46); Chloride (POC) 91 mmol/L (98-108); Creatinine (POC) 1.1 mg/dL (0.8-1.3); Glucose (ISTAT POC) 274 mg/dL (70-99); Potassium (POC) 3.7 mmol/L (3.5-5.5); Sodium (POC) 132 mmol/L (135-148); Total CO2 (POC) 12 mmol/L (21-32)
== END 2024-03-18 21:39 ==
LOC: ER 18:39
PROVIDERS: Emergency Medicine
DX: I46.9 Cardiac arrest, cause unspecified (principal); E11.9 Type 2 diabetes mellitus without complications; Z88.8 Allergy status to other drugs, medicaments and biological substances; Z79.899 Other long term (current) drug therapy
CPT/HCPCS: 31500; 80047; 85014; 94002; 99285-25